=== PATIENT | male | born 1975 | race Hispanic/Latino ===

== ENCOUNTER 2019-04-01 09:41 | Inpatient (IN) | payer BC, OTHER ==
[~2019-04-01] VITALS: Ht 167.6 cm; Wt 98.0 kg
[2019-04-01] MEDS ORDERED: MORPHINE SULFATE 2 MG/ML SYR 1ML IV STA (10:31)
[2019-04-01] MEDS ORDERED: ONDANSETRON HCL INJ 2MG/ML 2ML 2 MG/ML VIAL IV STA (10:31)
[2019-04-01 10:59] LABS: BILIRUBIN,URINE SMALL (NEGATIVE); CLARITY,URINE CLEAR (CLEAR); COLOR,URINE YELLOW (YELLOW); KETONES,URINE NEGATIVE (NEGATIVE); LEUKOCYTE ESTERASE ,URINE TRACE (NEGATIVE); NITRITE,URINE NEGATIVE (NEGATIVE); PROTEIN,URINE DIPSTICK 1+ (NEGATIVE); URINE UROBILINOGEN 0.2 mg/dL (0.2 - 1)
[2019-04-01 11:32] LABS: BASOPHILS # (AUTO) 0.1 (0.0-0.1); BASOPHILS % 0.3 % (0.0-1.0); EOSINOPHILS # (AUTO) 0.1 (0.0-0.4); EOSINOPHILS % 0.6 % (0.0-6.0); HEMOGLOBIN 15.1 g/dL (14.0-18.0); LYMPHOCYTES # (AUTO) 1.3 (1.0-3.2); LYMPHOCYTES % 7.2 % (18.0-39.1); MEAN CORPUSCULAR HEMOGLOBIN 29.4 pg (28-32); MEAN CORPUSCULAR HGB CONC 34.3 g/dL (31-35); MEAN CORPUSCULAR VOLUME 85.6 fL (81-99); MONOCYTES # (AUTO) 2.4 (0.2-0.8); MONOCYTES % 12.7 % (4.4-11.3); NEUTROPHILS # (AUTO) 14.5 (2.1-6.9); NEUTROPHILS % 78.6 % (38.7-80.0); PLATELET COUNT 206 x10e3/uL (140-360); RED BLOOD COUNT 5.14 x10e6/uL (4.3-5.7); RED CELL DISTRIBUTION WIDTH 12.4 % (11.7-14.4)
[2019-04-01 11:44] LABS: BACTERIA,URINE FEW /HPF; EPITHELIAL CELLS,URINE FEW /LPF; MUCUS,URINE FEW (RARE); RBC,URINE 0-5 /HPF (0-5); WBC,URINE (MAN) 0-5 /HPF (0-5)
[2019-04-01 11:52] LABS: ALANINE AMINOTRANSFERASE 68 IU/L (0-55); ALBUMIN 3.3 g/dL (3.5-5.0); ALBUMIN/GLOBULIN RATIO 0.8 (0.8-2.0); ALKALINE PHOSPHATASE 106 IU/L (40-150); ANION GAP 15.9 mmol/L (8-16); BLOOD UREA NITROGEN 15 mg/dL (7-26); BUN/CREATININE RATIO 15 (6-25); CALCIUM 9.6 mg/dL (8.4-10.2); CARBON DIOXIDE 23 mmol/L (22-29); CHLORIDE 99 mmol/L (98-107); EST GLOMERULAR FILTRATION RATE > 60 ML/MIN (60-); GLUCOSE 140 mg/dL (74-118); POTASSIUM 3.9 mmol/L (3.5-5.1); SODIUM 134 mmol/L (136-145)
[2019-04-01 12:14] LABS: BAND NEUTROPHILS % (MANUAL) 13 %; LYMPHOCYTES % (MANUAL) 10 % (19-48); MONOCYTES % (MANUAL) 13 % (3.4-9.0); NEUTROPHILS % (MANUAL) 64 % (40-74); PLATELET ESTIMATE ADEQUATE; PLATELET MORPHOLOGY COMMENT NORMAL; RBC MORPHOLOGY COMMENT NORMAL
--- NOTE | 2019-04-01 12:52 | Diagnostic Imaging Report ---
Exam: Testicular ultrasound. Clinical History: Scrotal pain and swelling Findings: There is severe scrotal soft tissue edema and thickening with increased associated vascularity. Right testicle: The right testicle measures 4.6 x 2.6 x 2.8 cm. There is homogeneous echotexture and normal blood flow. Numerous scattered punctate echogenic foci consistent with testicular microlithiasis. Trace right hydrocele. No right varicocele. Right epididymis: Right upper abdomen is measures 1.0 x 0.6 x 0.7 cm and appears unremarkable. Left testicle: The left testicle measures 4.5 x 2.7 x 3.0 cm and demonstrates homogeneous echotexture and normal blood flow. Numerous scattered punctate echogenic foci consistent with testicular microlithiasis. No hydrocele or varicocele. Left epididymis: The left epididymis measures 0.9 x 0.5 x 0.5 cm and appears unremarkable. Right and left inguinal lymph nodes are seen, the largest measuring up to 2.6 x 1.3 cm on the right. Impression: No testicular torsion. Severe scrotal soft tissue edema and thickening with increased associated vascularity, concerning for soft tissue infectious process. Bilateral testicular microlithiasis. Right and left prominent inguinal lymph nodes, largest measuring up to 2.6 x 1.3 cm on the right. Signed by: Aidthya Meyers MD on 04/01/2019 12:48 PM
--- OUTSIDE RECORDS SUMMARY | 2019-04-01 13:41 | XMS REPORT ---
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 Allergies, Adverse Reactions, Alerts This patient has no known allergies or adverse reactions. Medications This patient has no known medications. Results Test Description Test Time Test Comments Text Results Atomic Results Result Comments US TESTICULAR DOPPLER LTD 2019-04-01 12:42:00 [place] [address] Patient Name: SHAISTA MORGAN MR #: [id number] : 1975 Age/Sex: 43/M Req #: [id number] Adm Physician: Ordered by: ANDRÉS GASTELUM MD Report #: [id number] Location: ER Room/Bed: Procedure: [id number] US/US TESTICULAR DOPPLER LTD Exam Date: Exam Time: REPORT STATUS: Signed Exam: Testicular ultrasound. Clinical History: Scrotal pain and swelling Findings: There is severe scrotal soft tissue edema and thickening with increased associated vascularity. Right testicle: The right testicle measures 4.6 x 2.6 x 2.8 cm. There is homogeneous echotexture and normal blood flow. Numerous scattered punctate echogenic foci consistent with testicular microlithiasis. Trace right hydrocele. No right varicocele. Right epididymis: Right upper abdomen is measures 1.0 x 0.6 x 0.7 cm and appears unremarkable. Left testicle: The left testicle measures 4.5 x 2.7 x 3.0 cm and demonstrates homogeneous echotexture and normal blood flow. Numerous scattered punctate echogenic foci consistent with testicular microlithiasis. No hydrocele or varicocele. Left epididymis: The left epididymis measures 0.9 x 0.5 x 0.5 cm and appears unremarkable. Right and left inguinal lymph nodes are seen, the largest measuring up to 2.6 x 1.3 cm on the right. Impression: No testicular torsion. Severe scrotal soft tissue edema and thickening with increased associated vascularity, concerning for soft tissue infectious process. Bilateral testicular microlithiasis. Right and left prominent inguinal lymph nodes, largest measuring up to 2.6 x 1.3 cm on the right. Signed by: Lakisha Meyers MD on 04/01/2019 12:48 PM Dictated By: LAKISHA MEYERS MD 1248 Transcribed By: MAX on 04/01/19 1248 COPY TO: ANDRÉS GASTELUM MD TESTICULAR 2019-04-01 12:42:00 [place] [address] Patient Name: SHAISTA MORGAN MR #: [id number] : 1975 Age/Sex: 43/M Req #: [id number] Adm Physician: Ordered by: ANDRÉS GASTELUM MD Report #: [id number] Location: ER Room/Bed: Procedure: [id number] US/US TESTICULAR Exam Date: Exam Time: REPORT STATUS: Signed Exam: Testicular ultrasound. Clinical History: Scrotal pain and swelling Findings: There is severe scrotal soft tissue edema and thickening with increased associated vascularity. Right testicle: The right testicle measures 4.6 x 2.6 x 2.8 cm. There is homogeneous echotexture and normal blood flow. Numerous scattered punctate echogenic foci consistent with testicular microlithiasis. Trace right hydrocele. No right varicocele. Right epididy mis: Right upper abdomen is measures 1.0 x 0.6 x 0.7 cm and appears unremarkable. Left testicle: The left testicle measures 4.5 x 2.7 x 3.0 cm and demonstrates homogeneous echotexture and normal blood flow. Numerous scattered punctate echogenic foci consistent with testicular microlithiasis. No hydrocele or varicocele. Left epididymis: The left epididymis measures 0.9 x 0.5 x 0.5 cm and appears unremarkable. Right and left inguinal lymph nodes are seen, the largest measuring up to 2.6 x 1.3 cm on the right. Impression: No testicular torsion. Severe scrotal soft tissue edema and thickening with increased associated vascularity, concerning for soft tissue infectious process. Bilateral testicular microlithiasis. Right and left prominent inguinal lymph nodes, largest measuring up to 2.6 x 1.3 cm on the right. Signed by: Lakisha Meyers MD on 04/01/2019 12:48 PM Dictated By: LAKISHA MEYERS MD 1248 Transcribed By: MAX on 04/01/19 1248 COPY TO: ANDRÉS GASTELUM MD
[2019-04-01] MEDS ORDERED: ACETAMINOPHEN 325 MG TAB ONE (16:15)
[2019-04-01] MEDS: ONDANSETRON HCL INJ 2MG/ML 2ML 2 MG/ML VIAL IV PRN ×2 (16:18→20:06)
[2019-04-01] MEDS: ACETAMINOPHEN 325 MG TAB PO PRN (16:18)
[2019-04-01] MEDS: MORPHINE SULFATE INJ 4 MG/ML INJ 1ML IV PRN ×2 (16:22→20:06)
[2019-04-01] MEDS: PIPER-TAZ 3.375 GM 50 ML IV SCH ×2 (17:05→21:54)
--- NOTE | 2019-04-01 17:50 | NUR ---
report received from ER, patient to arrive via wheelchair alert and oriented.
--- NOTE | 2019-04-01 18:05 | NUR ---
patient arrived to unit via wheelchair, alert and oriented with at bedside. call abdi within reach and bed in lowest position.
[2019-04-01 18:18] VITALS: BP 160/81
[2019-04-01 19:00] VITALS: BP 160/81
--- NOTE | 2019-04-01 19:24 | NUR ---
rounded with supervisor functional testing nurse, patient aware of change and in no distress with family at bedside. call abdi within reach and bed in lowest position.
[2019-04-01] MEDS: TRIMETHOPRIM/SULFAMETHOXAZOLE 160-800 MG TAB PO SCH (20:06)
--- NOTE | 2019-04-01 20:25 | NUR ---
Patient c/o pain =6. Pain meds given as ordered by MD. Continue monitor.
[2019-04-01 20:52] VITALS: BP 126/67
[2019-04-01] MEDS ORDERED: SODIUM CHLORIDE 0.9% 250ML 250 ML ONE (22:08)
[2019-04-02] VITALS (7 sets, daily range): BP systolic 105–123; BP diastolic 57–73
--- NOTE | 2019-04-02 | NUR ---
Patient received pain meds every 4 hour. F/u for adequate pain relief. Continue monitor.
[2019-04-02] MEDS: MORPHINE SULFATE INJ 4 MG/ML INJ 1ML IV PRN ×6 (00:39→21:29)
[2019-04-02] MEDS: ONDANSETRON HCL INJ 2MG/ML 2ML 2 MG/ML VIAL IV PRN ×6 (00:40→21:29)
--- NOTE | 2019-04-02 02:00 | NUR ---
Elevated strotum on a towel to reduce swelling.
[2019-04-02] MEDS: PIPER-TAZ 3.375 GM 50 ML IV SCH ×4 (04:00→21:23)
[2019-04-02] MEDS ORDERED: VANCOMYCIN 1GM/NS 250 ML 250 ML IV SCH (06:15)
[2019-04-02] MEDS ORDERED: DIPHENHYDRAMINE HCL 25 MG CAP PO PRN (06:15)
--- NOTE | 2019-04-02 06:35 | NUR ---
Patient resting quitly in bed with at bedside.
[2019-04-02 07:21] LABS: BASOPHILS # (AUTO) 0.1 (0.0-0.1); BASOPHILS % 0.6 % (0.0-1.0); EOSINOPHILS # (AUTO) 0.2 (0.0-0.4); HEMATOCRIT 41.2 % (38.2-49.6); HEMOGLOBIN 13.9 g/dL (14.0-18.0); LYMPHOCYTES # (AUTO) 1.6 (1.0-3.2); LYMPHOCYTES % 9.6 % (18.0-39.1); MEAN CORPUSCULAR HEMOGLOBIN 29.3 pg (28-32); MEAN CORPUSCULAR HGB CONC 33.7 g/dL (31-35); MEAN CORPUSCULAR VOLUME 86.7 fL (81-99); MONOCYTES # (AUTO) 1.9 (0.2-0.8); MONOCYTES % 11.6 % (4.4-11.3); NEUTROPHILS # (AUTO) 12.8 (2.1-6.9); NEUTROPHILS % 76.4 % (38.7-80.0); PLATELET COUNT 187 x10e3/uL (140-360); RED BLOOD COUNT 4.75 x10e6/uL (4.3-5.7); RED CELL DISTRIBUTION WIDTH 12.3 % (11.7-14.4)
[2019-04-02 07:37] LABS: ALANINE AMINOTRANSFERASE 45 IU/L (0-55); ALBUMIN 2.8 g/dL (3.5-5.0); ALBUMIN/GLOBULIN RATIO 0.8 (0.8-2.0); ALKALINE PHOSPHATASE 88 IU/L (40-150); ANION GAP 14.2 mmol/L (8-16); BLOOD UREA NITROGEN 14 mg/dL (7-26); BUN/CREATININE RATIO 12 (6-25); CARBON DIOXIDE 27 mmol/L (22-29); CHLORIDE 98 mmol/L (98-107); CREATININE, SERUM 1.16 mg/dL (0.72-1.25); EST GLOMERULAR FILTRATION RATE > 60 ML/MIN (60-); GLUCOSE 119 mg/dL (74-118); POTASSIUM 4.2 mmol/L (3.5-5.1); SODIUM 135 mmol/L (136-145)
[2019-04-02] MEDS: VANCOMYCIN 1GM/NS 250 ML 250 ML IV SCH ×2 (08:49→20:26)
[2019-04-02] MEDS: TRIMETHOPRIM/SULFAMETHOXAZOLE 160-800 MG TAB PO SCH ×2 (08:49→20:26)
[2019-04-02] MEDS: ACETAMINOPHEN 325 MG TAB PO PRN ×2 (08:58→15:37)
--- NOTE | 2019-04-02 10:00 | NUR ---
Dr. Klein here to see pt in morning and made aware of positive blood culture and received orders for PICC line and repeat blood cultures in the morning.
[2019-04-02 11:52] LABS: BAND NEUTROPHILS % (MANUAL) 4 %; LYMPHOCYTES % (MANUAL) 8 % (19-48); MONOCYTES % (MANUAL) 17 % (3.4-9.0); NEUTROPHILS % (MANUAL) 70 % (40-74)
[2019-04-02 11:53] LABS: PLATELET ESTIMATE ADEQUATE; PLATELET MORPHOLOGY COMMENT NORMAL; RBC MORPHOLOGY COMMENT NORMAL
--- NOTE | 2019-04-02 13:28 | Consultation ---
DATE OF CONSULTATION: REASON FOR CONSULTATION: Scrotal abscess, cellulitis of the scrotum. HISTORY OF PRESENT ILLNESS: This is a very pleasant 43-year-old gentleman, denies past medical history. He has history of hypertension, but apparently he is not taking care of it. The patient comes in with redness and swelling of his scrotum, which started 4 days ago. It started with a small pimple, but then it started to get worse. Then, the whole scrotum became red and swollen with an ulcer. He came to the hospital because of the redness and swelling and the pain. He was started on Zosyn and then vancomycin added and since the vancomycin, he is telling me he seeing some improvement a little bit, but some improvement. He has been having fever and chills and not feeling well. PAST MEDICAL HISTORY: Recently diagnosed hypertension. Denies diabetes. PAST SURGICAL HISTORY: Denies. ALLERGIES: NKA. SOCIAL HISTORY: There is no smoking, drug abuse, or alcohol abuse. FAMILY HISTORY: Otherwise unremarkable. REVIEW OF SYSTEMS: HEENT: There is no headache, visual changes, or hearing changes. GI: There is no nausea, no vomiting, and no diarrhea. CARDIAC: There is no arrhythmia. NEURO: No seizure activity. SKIN: There are no other rashes. LABORATORY DATA: Reviewed. He had an ultrasound, which showed severe scrotal edema and thickening and increased associated vascularity concerning for soft tissue infection. His lab data reviewed. Blood cultures, gram-positive cocci in 2 sets. White count is 16.7 and hemoglobin 13.9. PHYSICAL EXAMINATION: GENERAL: He is currently alert and oriented, does not seem to be in acute distress. VITAL SIGNS: Stable, currently afebrile. HEENT: He is not or icteric. NECK: Supple. No JVD. No lymphadenopathy. No thyromegaly. CHEST: Clear bilateral. HEART: S1 AND S2. No S3, S4, or murmur. ABDOMEN: Soft. Bowel sounds present. No tenderness. No hepatosplenomegaly. EXTREMITIES: No edema. SKIN: There is no rash. : The scrotum is quite erythematous and edematous. There is an ulcer on the medial aspect of the left side of the scrotum. IMPRESSION: Sepsis on admission, cellulitis of the scrotum, concern bacteremia, concern early abscess, bacteremia, gram-positive cocci. Agree with vancomycin. Recheck CBC. Recheck chem panel. Continue with vancomycin. May need an echocardiogram. Recheck blood cultures. We would need surgical debridement. We will get a PICC line. Further recommendations to follow. MD KENDALL Lopez/USHA /[id number]
[2019-04-02] MEDS ORDERED: BACLOFEN10 MG PO (15:52)
[2019-04-02] MEDS ORDERED: AMIODARONE HCL400 MG PO (15:52)
[2019-04-02] MEDS ORDERED: ASPIRIN325 MG PO (15:53)
--- NOTE | 2019-04-02 16:04 | Diagnostic Imaging Report ---
Examination: Single AP view of the chest. COMPARISON: None. INDICATION: PICC line placement DISCUSSION: Lines/tubes: PICC line with tip over the SVC. Lungs: The lungs are well inflated and clear. No pneumonia or pulmonary edema. Pleura: No pleural effusion or pneumothorax. Heart and mediastinum: The heart and the mediastinum are unremarkable. Bones and soft tissues: No acute bony abnormalities. IMPRESSION: 1. PICC line with tip over the SVC. Signed by: Dr. Rohith Steward M.D. on 04/02/2019 4:00 PM
--- NOTE | 2019-04-02 17:00 | NUR ---
PICC line in place and is ok to use by CXR verification. Pt is continues on IV ABT and well tolerated.
--- NOTE | 2019-04-02 19:37 | NUR ---
Received change of shift report from AM nurses. Walking rounds completed.
--- NOTE | 2019-04-02 19:39 | NUR ---
Received change of shift report from nurses. Walking rounds completed. Addendum: 04/02/19 at 1941 by Carlota Alba RN duplicate. Error
[2019-04-02] MEDS ORDERED: PANTOPRAZOLE SOD 40 MG TABEC PO ONE (22:15)
--- NOTE | 2019-04-02 22:19 | NUR ---
Patient c/o indigestion. received order from MD for meds. Meds given as ordered . Continue monitor.
[2019-04-03] VITALS (7 sets, daily range): BP systolic 109–136; BP diastolic 58–87
--- NOTE | 2019-04-03 00:31 | NUR ---
Patient resting quitly at this time.
[2019-04-03] MEDS: PIPER-TAZ 3.375 GM 50 ML IV SCH (03:58)
[2019-04-03] MEDS: MORPHINE SULFATE INJ 4 MG/ML INJ 1ML IV PRN ×5 (06:35→23:43)
[2019-04-03 07:26] LABS: BASOPHILS # (AUTO) 0.1 (0.0-0.1); BASOPHILS % 0.5 % (0.0-1.0); EOSINOPHILS # (AUTO) 0.2 (0.0-0.4); EOSINOPHILS % 1.4 % (0.0-6.0); HEMATOCRIT 39.4 % (38.2-49.6); HEMOGLOBIN 13.4 g/dL (14.0-18.0); LYMPHOCYTES # (AUTO) 1.4 (1.0-3.2); LYMPHOCYTES % 11.3 % (18.0-39.1); MEAN CORPUSCULAR HEMOGLOBIN 29.5 pg (28-32); MEAN CORPUSCULAR VOLUME 86.8 fL (81-99); MONOCYTES # (AUTO) 1.3 (0.2-0.8); MONOCYTES % 10.4 % (4.4-11.3); NEUTROPHILS # (AUTO) 9.5 (2.1-6.9); NEUTROPHILS % 75.2 % (38.7-80.0); PLATELET COUNT 214 x10e3/uL (140-360); RED BLOOD COUNT 4.54 x10e6/uL (4.3-5.7); RED CELL DISTRIBUTION WIDTH 12.4 % (11.7-14.4)
[2019-04-03 07:45] LABS: ALANINE AMINOTRANSFERASE 37 IU/L (0-55); ALBUMIN 2.6 g/dL (3.5-5.0); ALBUMIN/GLOBULIN RATIO 0.7 (0.8-2.0); ALKALINE PHOSPHATASE 102 IU/L (40-150); ANION GAP 15.6 mmol/L (8-16); BLOOD UREA NITROGEN 10 mg/dL (7-26); BUN/CREATININE RATIO 10 (6-25); CALCIUM 8.7 mg/dL (8.4-10.2); CARBON DIOXIDE 24 mmol/L (22-29); CHLORIDE 100 mmol/L (98-107); CREATININE, SERUM 1.03 mg/dL (0.72-1.25); EST GLOMERULAR FILTRATION RATE > 60 ML/MIN (60-); GLUCOSE 136 mg/dL (74-118); POTASSIUM 3.6 mmol/L (3.5-5.1); SODIUM 136 mmol/L (136-145)
--- NOTE | 2019-04-03 07:52 | NUR ---
Pt received in bed with eyes open and able to verbalize needs. 0 s/s of acute distress noted. Complain of pain to scrotum. Scrotum supported on washcloths. PICC line in place and patent.
--- NOTE | 2019-04-03 10:00 | NUR ---
PA clarissa Klein was here to see pt and received results from lab that blood cx came back positive for MRSA. HE was made aware and received orders to to do ECHO and discontinue Zosyn. Notified Dr. Khan and received orders to consult Dr. Jackson to read ECHO.
[2019-04-03] MEDS: TRIMETHOPRIM/SULFAMETHOXAZOLE 160-800 MG TAB PO SCH ×2 (10:05→21:00)
[2019-04-03] MEDS: VANCOMYCIN 1GM/NS 250 ML 250 ML IV SCH ×2 (10:05→21:00)
[2019-04-03] MEDS: ACETAMINOPHEN 325 MG TAB PO PRN ×2 (11:29→21:00)
[2019-04-03] MEDS: ONDANSETRON HCL INJ 2MG/ML 2ML 2 MG/ML VIAL IV PRN ×4 (11:29→23:44)
--- NOTE | 2019-04-03 16:00 | NUR ---
Pt started having purulent bloody drainage to left side of scrotum. Spoke with Dr. Klein and sent specimen for culture and gram stain.
--- NOTE | 2019-04-03 19:01 | NUR ---
Report given by AM nurse. Walking rounds completed.
[2019-04-03] MEDS ORDERED: NORVASC5 MG PO (19:03)
--- NOTE | 2019-04-03 20:38 | NUR ---
Patient returned to the floor.
[2019-04-04] VITALS (7 sets, daily range): BP systolic 109–132; BP diastolic 55–77
--- NOTE | 2019-04-04 | NUR ---
Scrotum continue to be edematous with a quarter size opening under the left side. Draining serosangious fluid. ABD applied to catch drainage.
--- NOTE | 2019-04-04 01:05 | Consultation ---
DATE OF CONSULTATION: 04/03/2019 Cardiology Consult Note REASON FOR CONSULT: Bacteremia. CHIEF COMPLAINT: Scrotal pain. HISTORY OF PRESENT ILLNESS: The patient is a 43-year-old man, no past medical issues, not taking outpatient medications. He presented with redness and swelling of his scrotum started 4 days ago, started as a small pimple and has been getting worse since then, now suspected to have scrotal swelling. Blood cultures positive for MRSA. So, we were consulted to evaluate for possible endocarditis. The patient denies any shortness of breath, chest pain, or any heart failure symptoms. PAST MEDICAL HISTORY: None. PAST SURGICAL HISTORY: None. FAMILY HISTORY: No family history of early CAD or sudden cardiac . SOCIAL HISTORY: The patient does not smoke, drink, or abuse drugs. REVIEW OF SYSTEMS: As per HPI, otherwise negative. OUTPATIENT MEDICATIONS: None. ALLERGIES: NO KNOWN DRUG ALLERGIES. OBJECTIVE: VITAL SIGNS: Temperature 100.5, pulse rate 92, respiratory rate 18, blood pressure 116/58, and saturating 95% on room air. GENERAL: Young male, in no acute distress. CARDIOVASCULAR: Regular rate and rhythm. No murmurs, rubs, or gallops. LUNGS: Clear to auscultation bilaterally. ABDOMEN: Soft, nontender, nondistended. NEURO AND PSYCH: Alert and oriented to person, place, and time. Normal affect. INPATIENT MEDICATIONS: Reviewed. LABORATORY DATA: Reviewed. TELEMETRY DATA: Reviewed, shows normal sinus rhythm. Occasional sinus tachycardia. ASSESSMENT: Methicillin-resistant Staphylococcus aureus bacteremia. PLAN: Transthoracic echocardiogram was done. Does not show any significant valvular lesions. However, the image quality is not adequate to rule out endocarditis. We will plan for transesophageal echocardiogram once the patient improves clinically, likely tomorrow or Thursday. Thank you for this consult. We will continue to follow. MD COSTA Bell/BILLIEL /[id number]
[2019-04-04] MEDS: MORPHINE SULFATE INJ 4 MG/ML INJ 1ML IV PRN ×5 (04:12→22:50)
[2019-04-04] MEDS: ACETAMINOPHEN 325 MG TAB PO PRN (04:12)
[2019-04-04] MEDS: ONDANSETRON HCL INJ 2MG/ML 2ML 2 MG/ML VIAL IV PRN ×5 (04:13→22:50)
[2019-04-04 05:42] LABS: BASOPHILS # (AUTO) 0.1 (0.0-0.1); BASOPHILS % 0.7 % (0.0-1.0); EOSINOPHILS # (AUTO) 0.2 (0.0-0.4); EOSINOPHILS % 1.9 % (0.0-6.0); HEMOGLOBIN 12.6 g/dL (14.0-18.0); LYMPHOCYTES # (AUTO) 1.5 (1.0-3.2); LYMPHOCYTES % 13.2 % (18.0-39.1); MEAN CORPUSCULAR HEMOGLOBIN 29.3 pg (28-32); MEAN CORPUSCULAR HGB CONC 34.1 g/dL (31-35); MONOCYTES # (AUTO) 1.2 (0.2-0.8); MONOCYTES % 10.3 % (4.4-11.3); NEUTROPHILS # (AUTO) 8.3 (2.1-6.9); NEUTROPHILS % 72.2 % (38.7-80.0); PLATELET COUNT 238 x10e3/uL (140-360); RED CELL DISTRIBUTION WIDTH 12.6 % (11.7-14.4)
--- NOTE | 2019-04-04 06:00 | NUR ---
Consent signed. Patient states he understand procedure which he discussed with .
[2019-04-04 06:06] LABS: ALANINE AMINOTRANSFERASE 40 IU/L (0-55); ALBUMIN 2.4 g/dL (3.5-5.0); ALBUMIN/GLOBULIN RATIO 0.6 (0.8-2.0); ALKALINE PHOSPHATASE 120 IU/L (40-150); ANION GAP 14.7 mmol/L (8-16); BLOOD UREA NITROGEN 9 mg/dL (7-26); BUN/CREATININE RATIO 10 (6-25); CALCIUM 8.5 mg/dL (8.4-10.2); CARBON DIOXIDE 23 mmol/L (22-29); CHLORIDE 102 mmol/L (98-107); CREATININE, SERUM 0.91 mg/dL (0.72-1.25); EST GLOMERULAR FILTRATION RATE > 60 ML/MIN (60-); GLUCOSE 107 mg/dL (74-118); POTASSIUM 3.7 mmol/L (3.5-5.1); SODIUM 136 mmol/L (136-145)
--- NOTE | 2019-04-04 06:50 | NUR ---
RECEIVED PATIENT RESTING IN BED. NO ACUTE DISTRESS NOTED. CALL LIGHT WITHIN REACH. BED IN THE LOWEST POSITION.
[2019-04-04] MEDS: TRIMETHOPRIM/SULFAMETHOXAZOLE 160-800 MG TAB PO SCH ×2 (07:46→21:00)
[2019-04-04] MEDS: VANCOMYCIN 1GM/NS 250 ML 250 ML IV SCH (09:05)
--- NOTE | 2019-04-04 10:00 | NUR ---
NOTIFIED JOSE NATHAN FOR DR. VALLADARES OF BLOOD CULTURE RESULTS
--- NOTE | 2019-04-04 10:01 | NUR ---
PATIENT OFF UNIT FOR PROCEDURE AT THIS TIME.
[2019-04-04] MEDS ORDERED: IOPAMIDOL 610MG/1ML 300 MG/ML VIAL IV ONE (10:02)
[2019-04-04] MEDS ORDERED: BUPIVACAINE 0.5%/EPI 30 ML SDV INJ ONE (10:08)
[2019-04-04] MEDS ORDERED: HYDROGEN PEROXIDE 120 ML BTL ONE (11:00)
--- NOTE | 2019-04-04 12:17 | NUR ---
PATIENT BACK TO UNIT AT THIS TIME. HE IS IN STABLE CONDITION.
[2019-04-04] MEDS ORDERED: LIDOCAINE HCL 2% LOCAL INJ 5 ML SDV VIAL INJ ONE (15:04)
[2019-04-04] MEDS ORDERED: SEVOFLURANE INHAL SOLN 250 ML PEN BTL ONE (15:04)
[2019-04-04] MEDS ORDERED: DEXAMETHASONE SOD PHOS INJ 4 MG/ML VIAL ONE (15:04)
[2019-04-04] MEDS ORDERED: ONDANSETRON HCL INJ 2MG/ML 2ML 2 MG/ML VIAL ONE (15:04)
[2019-04-04] MEDS ORDERED: PROPOFOL IV EMULSION 10 MG/ML 20 ML VIAL ONE (15:04)
--- NOTE | 2019-04-04 15:08 | Consultation ---
DATE OF CONSULTATION: 04/01/2019 Urology Consultation Note Consultation is called by in the emergency room. CHIEF COMPLAINT/REASON FOR CONSULTATION: Scrotal cellulitis. HISTORY OF PRESENT ILLNESS: Mr. Ferrer is a 43-year-old male patient admitted with scrotal swelling, redness and pain for 48 hours. Denied fevers or chills. Denied nausea. No vomiting. Denied dysuria. Denied gross hematuria. PAST MEDICAL HISTORY: Denied. MEDICATIONS: Please see MAR. ALLERGIES: NKDA. SOCIAL HISTORY: Denied smoking or drinking. FAMILY HISTORY: Denied urologic stones or malignancies. REVIEW OF SYSTEMS: Noncontributory other than problems mentioned above for 12 organ systems. PHYSICAL EXAMINATION: GENERAL: Middle-aged male, in no acute distress. VITAL SIGNS: Currently, temperature 100.2, pulse 118, respirations 20, blood pressure 139/87. HEENT: Sclerae anicteric. NECK: Supple. BACK: Without costovertebral angle tenderness bilaterally. ABDOMEN: Soft. It is nontender. It is nondistended. There is no palpable mass. No palpable hernias. No palpable lymphadenopathy. : 4+ edema of the penis and scrotum. No discrete fluctuance. No crepitus. Testes are nonpalpable. Epididymis nonpalpable. EXTREMITIES: Trace edema. NEURO: Moves extremities to command. PSYCH: Alert. Mood appropriate. SKIN: Normal color. PERTINENT LABORATORY DATA: An ultrasound revealing thickening of the scrotal wall. Bilateral inguinal lymphadenopathy up to 2.6 cm. Hemoglobin 15, hematocrit 44, platelet count 206,000, white cell count 18,498. Sodium 134, potassium 3.9, chloride 99, bicarb 23, BUN 15, creatinine 1.0, glucose 140. AST is 72 and ALT of 68. Urinalysis, 0 to 5 reds, 0 to 5 whites, 1+ protein. IMPRESSION: 1. Scrotal cellulitis. 2. Scrotal edema. 3. Bilateral inguinal lymphadenopathy. 4. Hyponatremia. 5. Hypertension. 6. Proteinuria. PLAN: Begin broad-spectrum IV antibiotics. We will follow along with you. Thank you for allowing me to participate in the care of your patient. MD KIYA Escoto/USHA Kovacs: 04/04/2019 07:20:29 /[id number]
[2019-04-04] MEDS: PHENAZOPYRIDINE HCL 100 MG TAB PO SCH ×2 (15:13→21:00)
[2019-04-04] MEDS ORDERED: MIDAZOLAM HCL 2 MG/2 ML VIAL ONE (16:54)
[2019-04-04] MEDS ORDERED: FENTANYL CITRATE/PF 100MCG/2 ML INJ ONE (16:54)
--- NOTE | 2019-04-04 19:15 | NUR ---
patient received awake, alert, lying quietly in bed. vss. no c/o pain noted. dressing to scrotum remains c,d,i. pm assessment complete. patient instructed to call for assistance when needed.
--- NOTE | 2019-04-04 19:17 | NUR ---
REPORT GIVEN TO ONCOMING NURSE. PATIENT IS RESTING IN BED. NO ACUTE DISTRESS NOTED. FAMILY AT BEDSIDE. CALL LIGHT WITHIN REACH. BED IN THE LOWEST POSITION.
--- NOTE | 2019-04-04 20:36 | Progress Note ---
DATE: 04/04/2019 Cardiology Progress Note SUBJECTIVE: No major events overnight. OBJECTIVE: VITAL SIGNS: Temperature afebrile, pulse 76, respiratory rate 18, blood pressure 109/63, and saturating 97% on room air. GENERAL: Young male, in no acute distress. CARDIOVASCULAR: Regular rate and rhythm. No murmurs, rubs, or gallops. LUNGS: Clear to auscultation bilaterally. ABDOMEN: Soft, nontender, and nondistended. NEUROLOGIC AND PSYCHIATRIC: Alert and oriented to person, place, and time. Normal affect. INPATIENT MEDICATIONS: Reviewed. LABORATORY DATA: Reviewed. TELEMETRY DATA: Reviewed, shows normal sinus rhythm. ASSESSMENT AND PLAN: Methicillin-resistant Staphylococcus aureus bacteremia. PLAN: Transesophageal echocardiogram tomorrow to rule out endocarditis given MRSA bacteremia. MD COSTA Bell/USHA /[id number]
[2019-04-04] MEDS: VANCOMYCIN HCL 1.5 GM in SODIUM CHLORIDE 0.9% 250ML 300 ML IV SCH (21:00)
[2019-04-04] MEDS ORDERED: SODIUM CHLORIDE 0.9% 250ML 250 ML ONE (21:05)
[2019-04-05] VITALS (7 sets, daily range): BP systolic 106–136; BP diastolic 61–78
--- NOTE | 2019-04-05 01:17 | Operative Report ---
DATE OF PROCEDURE: 04/04/2019 SURGEON: Margie Hdez MD SERVICE: Urology. PREOPERATIVE DIAGNOSES: 1. A large left scrotal abscess. 2. Fever. 3. Positive blood culture. 4. Methicillin-resistant Staphylococcus aureus. 5. Frequency of urination, possible urinary tract infection. POSTOPERATIVE DIAGNOSES: 1. A large left scrotal abscess. 2. Fever. 3. Positive blood culture. 4. Methicillin-resistant Staphylococcus aureus. 5. Frequency of urination, possible urinary tract infection. OPERATIONS PERFORMED: 1. Cystoscopy and bilateral retrograde pyelograms under fluoroscopic control. 2. X-ray interpretation, radiologist not present. 3. Supervision of fluoroscopy. 4. Drainage of large scrotal abscess on the left side. 5. Debridement of some necrotic tissue. EXPORT ADMINISTRATOR: None. ANESTHESIA: General. CLINICAL INDICATION NOTE: A 43-year-old patient admitted to the hospital after one week of gradually increasing swelling of the left side of his scrotum and pain. He did have many months of voiding symptoms. The cultures were positive for MRSA from blood. The patient was brought for drainage of the abscess and assessment of the upper tracts. Procedure was discussed with the patient before surgery and explained what was done and he accepted. DESCRIPTION OF PROCEDURE AND FINDINGS: After appropriate level of anesthesia were achieved, the patient was placed in lithotomy position, prepped and draped in a sterile fashion. Urethra inspected is unremarkable. Bladder outlet is patent and no tumor or foreign bodies identified in the bladder. Bilateral retrograde pyelograms were done under fluoroscopic control. No intrinsic lesions were identified. Drainage was prompt. Following this, the bladder was emptied and the patient was then re-prepped and incision was made at the base of the scrotum on the left side, where there is a small hole. There was some pus coming out. About an inch and inch and a half incision was made. The loculated area of the sent again for culture and sensitivity, aerobic and anaerobic. After breaking all the , some necrotic tissue was excised as well. Following this, the wound was carefully irrigated with diluted solution of peroxide. Following this, the counter incision was made anteriorly higher in the scrotum and a Oxford drain about quarter inch in size was placed and sutured to itself to prevent displacement. Following this, any visible bleeding points were carefully coagulated. A Xeroform gauze was then used, 2 large pieces were utilized and placed into wounds, one of them to the left side and one up anteriorly. Following this, a dressing was applied and mesh underwear. The patient tolerated the procedure well, was transferred in satisfactory condition to recovery room. MD JAIME Boothe/USHA /[id number]
--- NOTE | 2019-04-05 06:52 | NUR ---
RECEIVED PATIENT RESTING IN BED. NO ACUTE DISTRESS NOTED. PAIN AT A TOLERABLE LEVEL AT THIS TIME. CALL LIGHT WITHIN REACH. BED IN THE LOWEST POSITION.
[2019-04-05] MEDS: ONDANSETRON HCL INJ 2MG/ML 2ML 2 MG/ML VIAL IV PRN ×4 (07:45→22:29)
[2019-04-05] MEDS: MORPHINE SULFATE INJ 4 MG/ML INJ 1ML IV PRN ×4 (07:45→22:29)
[2019-04-05] MEDS: PHENAZOPYRIDINE HCL 100 MG TAB PO SCH ×3 (08:55→20:14)
[2019-04-05] MEDS: TRIMETHOPRIM/SULFAMETHOXAZOLE 160-800 MG TAB PO SCH (08:55)
[2019-04-05] MEDS: VANCOMYCIN HCL 1.5 GM in SODIUM CHLORIDE 0.9% 250ML 300 ML IV SCH ×2 (08:55→20:14)
[2019-04-05] MEDS ORDERED: BENZOCAINE 20% SPR 60 ML CAN ONE (10:50)
[2019-04-05] MEDS ORDERED: SODIUM CHLORIDE 0.9% 1000ML 1,000 ML ONE (10:50)
--- NOTE | 2019-04-05 11:00 | NUR ---
PATIENT OFF THE UNIT FOR PROCEDURE.
--- NOTE | 2019-04-05 12:15 | NUR ---
1105 - pt received for MARTHA/cardioversion, placed on bedside monitoring. pt positioned for procedure. picc patent to left brachial , VS wnl, NSR rhythm 1110 - all responsible staff present, Timeout performed 1110 - hurricaine spray (spray 1) to oral cavity by Chris 1115 - hurricaine spray (spray 2) to oral cavity by Chris 1135 - bite block positioned and MARTHA probe passed 1145 - agitated saline injected for bubble study 1146 - MARTHA probe removed , no gross trauma or distress observed 1200 - Pt recovered in Endo 3, VS wnl x3 , A& O x3. No acute distress or obvious need. Oral cavity atraumitc. Report called to Phylicia LINCOLN. Observed contact precautions.
--- NOTE | 2019-04-05 12:19 | NUR ---
PATIENT BACK TO ROOM AT THIS TIME.
--- NOTE | 2019-04-05 14:44 | Progress Note ---
DATE: 04/05/2019 Cardiology Progress Note SUBJECTIVE: Mr. Ferrer denies any pain. PHYSICAL EXAMINATION: VITAL SIGNS: Afebrile, heart rate 69, blood pressure 117/66. CARDIOVASCULAR: Regular rhythm. No murmurs or gallops. LUNGS: Clear to auscultation bilaterally. ABDOMEN: Soft. Bowel sounds are adequate. TELEMETRY: Transesophageal echocardiogram revealed no evidence of endocarditis. Normal LV function. ASSESSMENT: Methicillin Staph aureus bacteremia. RECOMMENDATIONS: No evidence of endocarditis. I thank Dr. Khan for this consultation. We will follow on a p.r.n. basis. MD SAMUEL Appiah/MODLena /[id number]
[2019-04-05] MEDS ORDERED: LIDOCAINE HCL 2% LOCAL INJ 5 ML SDV VIAL INJ ONE (14:54)
[2019-04-05] MEDS ORDERED: PROPOFOL IV EMULSION 10 MG/ML 20 ML VIAL ONE (14:54)
[2019-04-05] MEDS ORDERED: SODIUM CHLORIDE 0.9% 50ML 50 ML ONE (15:03)
[2019-04-05] MEDS ORDERED: IOPAMIDOL 370 MG/ML 200 ML INFUS..BTL INJ ONE (15:03)
[2019-04-05] MEDS ORDERED: FENTANYL CITRATE/PF 100MCG/2 ML INJ ONE (15:20)
[2019-04-05] MEDS ORDERED: MIDAZOLAM HCL 2 MG/2 ML VIAL ONE (15:20)
--- NOTE | 2019-04-05 15:21 | Diagnostic Imaging Report ---
EXAM: CT Chest, Abdomen and Pelvis WITH intravenous contrast INDICATION: Leukocytosis, concern for infection COMPARISON: None. TECHNIQUE: Chest, Abdomen and pelvis were scanned utilizing a multidetector helical scanner from the lung apices to the pubic symphysis after administration of IV contrast. Coronal and sagittal reformations were obtained. Routine protocol was performed. Scan was performed when during portal venous phase. IV CONTRAST: 100mL of Isovue 370 ORAL CONTRAST: Water COMPLICATIONS: None RADIATION DOSE: Total DLP: 1112.9 mGy*cm Dose modulation, iterative reconstruction, and/or weight based adjustment of the mA/kV was utilized to reduce the radiation dose to as low as reasonably achievable. FINDINGS: LINES/ TUBES: Left PICC line terminates in the SVC. LUNGS AND AIRWAYS: The central airways are patent. No focal consolidation. No pulmonary edema. Mild bibasilar dependent subsegmental atelectasis right greater than left. Scattered pulmonary nodules includin mm right apical nodule (series 2 image 11), 5 mm right middle lobe nodules (series 2 image 30, 36), 6 mm left upper lobe nodule (series 2 image 22) and 6 mm left lower lobe nodules (series 2 image 20). Small sliding hiatal hernia. PLEURA: The pleural spaces are clear. HEART AND MEDIASTINUM: The partially visualized thyroid gland appears unremarkable. No supraclavicular, mediastinal, or hilar lymphadenopathy. No axillary, subpectoral, or internal mammary lymphadenopathy. The heart is not enlarged. No pericardial effusion. HEPATOBILIARY: 15 mm right hepatic cyst. Subcentimeter smaller right hepatic hypodensities are indeterminate but also likely represent cysts. No other focal liver lesions. No biliary ductal dilation. The gallbladder appears unremarkable. SPLEEN: No splenomegaly. PANCREAS: No focal masses or ductal dilatation. ADRENALS: No adrenal nodules. KIDNEYS/URETERS: No hydronephrosis, stones, or solid mass lesions. PELVIC ORGANS/BLADDER: Small amount of dependent air in the bladder, likely postoperative from recent instrumentation. PERITONEUM / RETROPERITONEUM: No free air or fluid. LYMPH NODES: No lymphadenopathy. VESSELS: Unremarkable. GI TRACT: No distention or wall thickening. Normal appendix. BONES AND SOFT TISSUES: There is severe scrotal soft tissue swelling and edema with soft tissue defect along the left lateral aspect of the scrotum with air tracking throughout the scrotal soft tissues and along the left inguinal canal superiorly to the left anterior abdominal subcutaneous soft tissues. IMPRESSION: Severe scrotal soft tissue swelling and edema with soft tissue defect along left lateral aspect of the scrotum with air tracking throughout the scrotal soft tissues and along the left inguinal canal superiorly to the left anterior abdominal wall. This could be postoperative if there has been recent instrumentation in this area. In the absence of corresponding recent surgical history, this is highly concerning for infection. A lateral pulmonary nodules measuring up to 7 mm as above. Recommend follow-up chest CT in 6-12 months followed by subsequent chest CT in 16-24 months. Signed by: Adithya Meyers MD on 04/05/2019 3:18 PM
--- NOTE | 2019-04-05 18:51 | NUR ---
REPORT GIVEN TO ONCOMING NURSE. WALKING ROUNDS DONE. PATIENT IS IN STABLE CONDITION. NO ACUTE DISTRESS NOTED. FAMILY AT BEDSIDE. CALL LIGHT WITHIN REACH. BED IN THE LOWEST POSITION.
--- NOTE | 2019-04-05 19:00 | NUR ---
patient received awake, alert, lying quietly in bed. no c/o pain noted. pm assessment complete. noted at the bedside. patient instructed to call for assistance when needed.
--- NOTE | 2019-04-05 21:07 | NUR ---
patient medicated with benadryl 25 mg pop for c/o itching at this time.
--- NOTE | 2019-04-05 22:29 | NUR ---
patient medicated with morphine 4mg and zofran 4mg ivp for c/o scrotal pain 03/09 at this time.
--- NOTE | 2019-04-05 22:44 | NUR ---
patient medicated with morphine 4mg and zofran 4mg ivp for c/o bilateral feet pain 03/09 and benadryl 25 mg po for c/o itching at this time. Addendum: 04/05/19 at 2247 by Janie Hamilton RN error--wrong patient.
--- NOTE | 2019-04-05 23:00 | NUR ---
packing/dressing to scrotum changed at this time.
[2019-04-06] VITALS (8 sets, daily range): BP systolic 111–122; BP diastolic 57–74
[2019-04-06] MEDS: ONDANSETRON HCL INJ 2MG/ML 2ML 2 MG/ML VIAL IV PRN ×4 (05:40→21:24)
[2019-04-06] MEDS: MORPHINE SULFATE INJ 4 MG/ML INJ 1ML IV PRN ×4 (05:40→21:24)
--- NOTE | 2019-04-06 05:40 | NUR ---
patient medicated with morphine 4mg and zofran 4mg ivp for c/o scrotal pain 03/09 at this time.
[2019-04-06] MEDS: VANCOMYCIN HCL 1.5 GM in SODIUM CHLORIDE 0.9% 250ML 300 ML IV SCH ×2 (08:59→21:24)
[2019-04-06] MEDS: PHENAZOPYRIDINE HCL 100 MG TAB PO SCH ×3 (08:59→21:24)
--- NOTE | 2019-04-06 11:00 | NUR ---
Per VENITA Queen, pt's antibiotics have been approve thru Dr. Klein's office [phone]. Pt needs appointment prior to discharge. LATONIA Good reached out to Dr. Khan regarding discharge. said pt not cleared for discharge today.
--- NOTE | 2019-04-06 20:02 | NUR ---
RECEIVE DPT IN BED AOX3 .RESPIRATIONS ARE EVEN AND UNLABORED .PACKING AT SCROTUM DRY AND INTACT .DENIES PAIN CALL LIGHT WITH IN REACH .CONTINUE TO MONITOR
[2019-04-07 00:16] VITALS: BP 135/65
[2019-04-07] MEDS: MORPHINE SULFATE INJ 4 MG/ML INJ 1ML IV PRN ×3 (01:39→10:50)
[2019-04-07] MEDS: ONDANSETRON HCL INJ 2MG/ML 2ML 2 MG/ML VIAL IV PRN ×3 (01:40→10:50)
[2019-04-07 05:53] VITALS: BP 100/59
--- NOTE | 2019-04-07 07:25 | NUR ---
CHANGED THE DRESSING .PT C/O PAIN AND GIVEN ORDERED PAIN MEDICATION .BEDSIDE REPORT GIVEN TO THE ON COMING NURSE
[2019-04-07 07:40] VITALS: BP 114/67
--- NOTE | 2019-04-07 07:54 | NUR ---
Patient resting in bed, Alert with no distress, bed alarm ON, call light in reach, Dressing is intact on scrotal area, at bed side
[2019-04-07] MEDS: PHENAZOPYRIDINE HCL 100 MG TAB PO SCH ×2 (08:13→16:05)
[2019-04-07 08:14] VITALS: BP 114/67
[2019-04-07] MEDS: VANCOMYCIN HCL 1.5 GM in SODIUM CHLORIDE 0.9% 250ML 300 ML IV SCH (09:35)
--- NOTE | 2019-04-07 09:43 | NUR ---
Scrotal dressing and PICC line dressing changed, patient tolerated well
[2019-04-07 11:28] VITALS: BP 110/62
--- NOTE | 2019-04-07 14:39 | NUR ---
Spoke to Dr. Good and informed him that pt has IV abx set up thru Dr. Klein's office and Dr. Arevalo wrote ok to dc from standpoint. He stated that pt can discharge if other MDs have cleared him. ANGELINA called Dr. Klein's office to get appointment for pt. [address] [place] [address] Appointment is for 9am CM informed LATONIA Good of appointment time and he will call Dr. Good for DC order/instructions.
[2019-04-07 15:22] VITALS: BP 127/68
--- NOTE | 2019-04-07 16:36 | NUR ---
Nutrition LOS Note RD Recommendation(s) for Physician / Nutrition Prescription: continue with diet as prescribed Plan of Care: Patient has been screened and assessed for nutrition risk. At this time, the patient does not pose any nutrition risk. No further nutrition intervention is warranted at this time. Will re-evaluate if consulted by medical staff. Nutrition reason for involvement: LOS Primary Dx: Scrotal cellulitis PMH: None Ht: 66in Wt: 216lb BMI: 34.9kg/m2 IBW: 142lb +/- 10% RD Assessment: 04/07 43yo M, who was admitted for cellulitis of scrotum. Visited pt in the room. Pt reported improvement in his appetite with >50% meal intake. No GI complains reported. Pt denied any chewing or swallowing difficulty. Pt denied any recent weight loss. Current diet is appropriate and adequate. Plan to d/c today. Malnutrition Evaluation (04/07/2019) The patient does not meet criteria for a specified degree of malnutrition at this time. Will re-evaluate at follow-up as appropriate. Diet Education Needs Assessment: Diet education not indicated. Nutrition Care Level: Low Beth Gallegos, MS, RD, LD
[2019-04-07] MEDS ORDERED: ULTRAM50 MG PO (17:00)
--- NOTE | 2019-04-07 17:29 | NUR ---
Discharge order recvd from Dr Good, patient discharged home with PICC line, prescription given for pain med, Denies any distress or pain this time. dressing changed on scrotal area before discharge, PICC line is patent, intact, at bed side, patient aware about follow up appointment with Dr Klein and Dr Hdez, not in any distress, transported via wheelchair to [facility]
--- NOTE | 2019-04-07 22:38 | Progress Note ---
DATE: SUBJECTIVE: The patient appears to be doing okay. No new complaints. OBJECTIVE: VITAL SIGNS: Stable, afebrile. GENERAL: No apparent distress. CARDIOVASCULAR: Regular rate and rhythm. LUNGS: Clear to auscultation bilaterally. ABDOMEN: Good bowel sounds. Soft and nontender. Scrotum is still very swollen, but does appear little bit better. EXTREMITIES: No clubbing or cyanosis. NEUROLOGIC: Nonfocal. ASSESSMENT AND PLAN: 1. Sepsis, secondary to methicillin-resistant Staphylococcus aureus bacteremia from scrotal abscess. We will continue with current care per Infectious Disease and ID. 2. Testicular pain. Continue with pain control. Please see hospital chart for full details. MD DEYANIRA Pelaez/USHA /[id number]
--- NOTE | 2019-04-16 06:27 | Discharge Summary ---
DISCHARGE DIAGNOSES: 1. Sepsis, secondary to scrotal abscess. 2. Sepsis with methicillin-resistant Staphylococcus aureus. HISTORY OF PRESENT ILLNESS AND HOSPITAL COURSE: See hospital chart for full details. The patient is a gentleman, who presented with edema, scrotal swelling, and redness, where he was found to have a scrotal abscess on the left side that ended up growing MRSA in his blood stream on two cultures. He then had an I and D of the scrotal abscess by Dr. Hdez and associates without any complications, where they also grew out MRSA. Once the cultures were obtained, the patient had a PICC line placed. He was seen by Dr. Arevalo. We did set up outpatient home IV antibiotics. Once this was obtained again through by the insurance, he was able to be discharged home with continuation of the IV antibiotics. Follow up with me in 1 week as well as with Dr. Hdez's team in 1 to [address] Klein, and he felt much better at the time of discharge with significant decrease in the swelling and redness of the testicle area. Please see hospital chart for full details. MD DEYANIRA Pelaez/USHA /[id number]
== END 2019-04-07 17:26 | disposition home or self-care (01) | DRG 872 ==
LOC: ER 09:41 → ERHOLD 13:17 → MED/SURG3 18:02
PROVIDERS: ADMIT Internal Medicine; ATTEND Internal Medicine
PROC: 02HV33Z Insertion of Infusion Device into Superior Vena Cava, Percutaneous Approach (ICD-10-PCS; 2019-04-02)
PROC: B548ZZA Ultrasonography of Superior Vena Cava, Guidance (ICD-10-PCS; 2019-04-02)
PROC: 0V950ZX Drainage of Scrotum, Open Approach, Diagnostic (ICD-10-PCS; principal; 2019-04-04 11:30)
PROC: BT141ZZ Fluoroscopy of Kidneys, Ureters and Bladder using Low Osmolar Contrast (ICD-10-PCS; 2019-04-04 11:30)
DX: A41.02 Sepsis due to Methicillin resistant Staphylococcus aureus (principal); E87.1 Hypo-osmolality and hyponatremia; N49.2 Inflammatory disorders of scrotum; Z82.49 Family history of ischemic heart disease and other diseases of the circulatory system; E66.9 Obesity, unspecified; Z68.34 Body mass index [BMI] 34.0-34.9, adult; R59.1 Generalized enlarged lymph nodes; R80.9 Proteinuria, unspecified; I10 Essential (primary) hypertension; D64.9 Anemia, unspecified; R91.1 Solitary pulmonary nodule
CPT/HCPCS: 36415; 36569; 71045; 71260; 74177; 74420; 76870; 80053; 80202; 81001; 85025; 87040; 87071; 87075; 87086; 87186; 87205; 93306; 93312; 93320; 93325; 93976; 99284; C1758; J1100; J2001; J2250; J2270; J2405; J2543; J3010; J3370; J7030; J7050; Q9967

== ENCOUNTER 2019-08-04 10:09 | Emergency (ER) | payer BC ==
[~2019-08-04] VITALS: Ht 167.6 cm; Wt 98.0 kg
[~2019-08-04 10:09] MED LIST: AMIODARONE HCL400 MG PO; ASPIRIN325 MG PO; BACLOFEN10 MG PO; NORVASC5 MG PO; ULTRAM50 MG PO
[2019-08-04] MEDS ORDERED: CLINDAMYCIN 600MG / 50ML 50 ML IV ONE (10:30)
[2019-08-04] MEDS ORDERED: CLINDAMYCIN PHOS 600 MG/ 4 ML VIAL IM ONE (12:30)
== END 2019-08-04 12:37 | disposition home or self-care (01) ==
LOC: ER 10:13
DX: M79.652 Pain in left thigh (principal); L03.116 Cellulitis of left lower limb; I10 Essential (primary) hypertension
CPT/HCPCS: 99283